=== PATIENT | female | born 1985 | race Caucasian/White ===

== ENCOUNTER 2025-03-11 20:50 | Emergency (ER) | payer BC, SELFPAY ==
[2025-03-11 20:52] VITALS: BP 133/84
[2025-03-11 21:37] VITALS: BMI 21.3
[2025-03-11 22:38] VITALS: BP 105/78
--- NOTE | 2025-03-11 22:54 | ED.GENMED ---
History of Present Illness
General
Chief Complaint: Fever
Source: patient
Exam Limitations: none
Time Seen by Provider: 03/11/25 21:19
History of Present Illness
History of Present Illness:
This is a 40-year-old female who presents with fever and pain near the right mastoid and lateral neck. Also with swollen lymph nodes. Was seen in urgent care and had normal labs and COVID and flu swabs. She had a negative monotest. She had a
negative rapid strep. Patient states her child recently had a viral infection. No vomiting. No abdominal pain. No sore throat. No difficulty swallowing. No stridor.
Past History
Past History
ED Past Medical History: Other (Seborrheic dermatitis)
Phy Exam
Physical Exam
Physical Exam:
CONSTITUTIONAL Patient alert and oriented to person, place and time. Well-appearing. Vital signs reviewed.
HEAD atraumatic, normocephalic.
EYES eyelids normal to inspection, Extraocular muscles intact, Conjunctiva normal, Sclera normal.
ENT TMs normal bilaterally. No mastoid swelling or redness. Slight tenderness. No proptosis of the ear. Earlobe normal. She does have very fine lymph nodes noted to the posterior cervical change as well as the suboccipital region bilaterally.
Patient states that she has had this in the past. Uvula normal, no exudates, no stridor, no pharyngeal redness
NECK normal range of motion, Trachea midline, no jugular venous distention. No anterior lymphadenopathy. No drooling. No stridor.
RESPIRATORY CHEST No respiratory distress noted, Chest expansion equal, Bilateral breath sounds clear.
CARDIOVASCULAR regular rate and rhythm, Heart sounds normal.
ABDOMEN abdomen nontender, Bowel sounds normal. No distention.
BACK normal inspection, no obvious deformities
UPPER EXTREMITY range of motion normal, Motor strength normal, no cyanosis, no edema.
LOWER EXTREMITY range of motion normal, Motor strength normal, no cyanosis, no edema.
NEURO Speech normal, No focal motor deficits, Blakeslee coma scale 15, Memory normal, Cranial Nerves intact to screening exam.
SKIN skin warm, dry, and normal in color.
Course
Orders/Labs/Results
Orders:
Orders
03/11/25 22:44
[facility]
Doxycycline [Vibramycin] 100 mg PO NOW STA
Vital Signs
Initial and Last Documented VS:
Initial Vital Signs
Temp Pulse Resp BP Pulse Ox
98.9 F 107 18 133/84 100
03/11/25 20:52 03/11/25 20:52 03/11/25 20:52 03/11/25 20:52 03/11/25 20:52
Last Documented Vital Signs
Temp Pulse Resp BP Pulse Ox
97.7 F 74 18 105/78 99
03/11/25 22:38 03/11/25 22:38 03/11/25 22:38 03/11/25 22:38 03/11/25 22:38
MDM/Problems Addressed
MDM/Problems Addressed:
Fever, lymphadenitis
*Pulse Oximetry
Patient hypoxic: no
*Critical Care Note
Total Time (30-74mins, 75-104mins- exclusive of procedures): Not Applicable
Data Reviewed
Review of Other/Old Records Reveals: Labs (Urgent care labs reviewed that were negative)
Source: patient
Further Testing Considered But Not Given:
Consider CT of the neck but no drooling, no stridor, no pharyngeal abnormalities noted. No asymmetry on exam
Patient Management
Escalation/DeEscalation of care consider admission/obs:
Patient peers well. In light of possible lymphadenitis will cover with doxycycline. Send Lyme testing. Okay for discharge. Question viral source also
ED Attending Note
-
Portions of this chart may have been created with voice recognition software.� Occasional wrong word or��sound alike� substitutions may have occurred due to the inherent limitations of voice recognition software.
Discharge Plan
Departure
Patient Disposition: Home (Routine Discharge)
Date of Disposition: 03/11/25
Time of Disposition: 22:58
Patient with high blood pressure during this ER visit?: No
Discharge Problem:
Fever, Acute lymphadenitis
Instructions: Fever, Adult (DC)
Prescriptions:
New
doxycycline monohydrate 100 mg capsule
100 mg PO BID Qty: 14 0RF
Referrals:
Cherry Barnhart CRNP [Family Provider] -
Activity Restrictions/Additional Instructions:
Return immediately for swelling or abnormal position of the ear, difficulty swallowing, drooling, cough, shortness of breath, sore throat or any other concerns. Please see your doctor next 3 to 5 days for follow-up and reevaluation.
Interventions
Interventions:
*Risk Screen - Suicide Last Done: 03/11/25 20:56
*General Assessment Last Done: 03/11/25 20:56
*Neglect/Abuse Screening Last Done: 03/11/25 20:56
*ED- Fall Risk Assessment Last Done: 03/11/25 20:56
*ED COVID-19 Vaccine History Last Done: 03/11/25 20:56
ED- Neurological Assessment Last Done: 03/11/25 21:38
ED-Skin Assessment Last Done: 03/11/25 21:38
Discharge Date and Time
Print Language: SLOVAK
[2025-03-11] MEDS: VIBRAMYCIN 100 MG PO (23:15)
[2025-03-13 12:01] LABS: Lyme Antibody Screen, EIA Negative (Negative)
== END 2025-03-11 23:20 | disposition home or self-care (01) ==
LOC: EMR 20:50
PROVIDERS: EMERGENCY PHYSICIAN Emergency Medicine; FAMILY PHYSICIAN Nurse Practitioner Family
DX: L04.9 Acute lymphadenitis, unspecified (principal)
CPT/HCPCS: 99283; 86618